=== PATIENT | female | born 1945 | race Caucasian/White ===

== ENCOUNTER 2024-02-03 13:07 | Emergency (ER) | payer OTHER, BC ==
[2024-02-03] MEDS ORDERED: DOXYCYCLINE 100 MG CAP PO ONE (14:12)
[2024-02-03] MEDS ORDERED: CEPHALEXIN 250 MG CAP ONE (14:12)
[2024-02-03] MEDS ORDERED: FUROSEMIDE 20 MG/ 2ML VIAL ONE (14:13)
--- NOTE | 2024-02-03 14:58 | RAD REPORT ---
EXAMINATION: ONE VIEW CHEST XR CLINICAL INDICATION: Female, 78 years old.,SWELLING TECHNIQUE: Frontal chest projection is submitted. Examination is limited by patient positioning and t echnique. COMPARISON: No prior exam. FINDINGS: The lungs are well inflated and clear. No pneumothorax or sizable effusion. The heart is normal in s ize. Sequelae of median sternotomy. IMPRESSION: No acute intrathoracic abnormalities.
[2024-02-03 15:29] LABS: Absolute Eosinophils 0.2 K/uL (0-0.5); Absolute Lymphocytes (CBC) 1.3 K/uL (0.7-4.9); Absolute Monocytes 0.2 K/uL (0.1-1.3); Absolute Neutrophil 4.3 K/uL (1.8-8.0); Basophils % 0.8 % (0-1.3); Hemoglobin 10.3 g/dL (12.0-15.0); Lymphocytes % 21.4 % (15.3-44.8); MCH 35.8 pg (27.0-35.0); MCHC 34.2 g/dL (32.0-36.0); MCV 104.7 fL (80-100); MPV 7.5 fL (7.6-11.3); Monocytes % 3.6 % (3.3-12.3); Neutrophils % 70.2 % (41.7-73.7); Nucleated Red Blood Cells % 0.1 % (0-0); Platelets 149 thou/uL (152-406); RBC Red Blood Cell Count 2.87 M/uL (3.86-4.86); Red Cell Distribution Width 14.3 % (12.1-15.2)
[2024-02-03 15:48] LABS: Magnesium 1.9 mg/dL (1.6-2.4)
[2024-02-03 16:07] LABS: Albumin 2.7 g/dL (3.4-5.0); Albumin/Globulin Ratio 0.8 (1.1-1.8); Anion Gap 7.7 mEq/L (5.0-15.0); Bilirubin Total 0.6 mg/dL (0.2-1.0); Globulin 3.2 g/dL (2.3-3.5); Potassium 3.7 mEq/L (3.5-5.1); Protein, Total 5.9 g/dL (6.4-8.2)
--- NOTE | 2024-02-03 16:19 | EDPHYS ---
Physician Documentation [facility] Name: Darleen Lan Age: 78 yrs Sex: Female : 1945 Arrival Date: 02/03/2024 Time: 13:07 Bed 2 Private MD: ED Physician Jam Capone HPI: 02/02 14:30 This 78 yrs old Female presents to ER via Ambulatory with complaints of Ankle Swelling, kb Skin Sore(s). Historical: - Allergies: 13:44 No Known Allergies; aa5 - Home Meds: 13:47 pregabalin 50 mg Oral capsule once [Active]; atorvastatin 20 mg oral tablet once aa5 [Active]; famotidine 40 mg Oral tablet once [Active]; nystatin 100,000 unit/mL Oral suspension 1 mL [Active]; amlodipine 5 mg tablet once [Active]; prednisone 20 mg Oral tablet once [Active]; Trulicity 3 mg/0.5 mL subcutaneous Pen Injector 3 mg every week [Active]; methotrexate sodium 2.5 mg Oral tablet 4 tabs every week [Active]; clopidogrel 75 mg oral tablet once [Active]; Lantus U-100 Insulin 100 unit/mL Sub-Q solution 15 units every evening [Active]; insulin aspart U-100 subcutaneous 2 units per sliding scale [Active]; metoprolol succinate 100 mg oral Tablet, Extended Release 24 hr daily [Active]; ferrous sulfate 325 mg (65 mg iron) oral tablet 3 times a week [Active]; hydralazine 50 mg Oral tablet at bedtime [Active]; 13:53 nitroglycerin 0.4 mg SL Tablet, Sublingual every 5 minutes [Active]; pramipexole 1 mg aa5 oral tablet every day at bedtime [Active]; niacinamide 500 mg oral tablet 2 times per day [Active]; mirtazapine 15 mg Oral tablet every day at bedtime [Active]; tacrolimus 1 mg oral capsule [Active]; hydroxyzine HCl 10 mg Oral tablet take 1-2 tabs at night as needed for itching [Active]; apixaban 5 mg oral tablet 2 times per day [Active]; Euthyrox 50 mcg oral tablet daily [Active]; doxycycline hyclate 100 mg Oral capsule daily [Active]; triamcinolone acetonide Topical 2 times per day [Active]; Zofran Oral 4 mg every 8 hours [Active]; mirtazapine 15 mg Oral tablet every day at bedtime [Active]; Bumex and Lasix (not taking due to kidney function) [Active]; - PMHx: 13:44 CHF; Kidney failure stage 3; Diabetes mellitus; thyroid problem; Mucous membrane aa5 pemphigoid; Hemolytic Anemia; - PSHx: 13:44 Open Heart SX; aa5 - Immunization history:: Adult Immunizations unknown. - Infectious Disease History:: Denies. - Social history:: Smoking status: Patient denies any tobacco usage or history of. ROS: 14:22 Constitutional: As per HPI kb Exam: 14:22 Constitutional: This is a well developed, well nourished patient who is awake, alert, kb and in no acute distress. Head/Face: Normocephalic, atraumatic. ENT: Moist Mucous membranes Cardiovascular: Regular rate Respiratory: Respirations even and unlabored. No increased work of breathing. Talking in full sentences Abdomen/GI: Soft, non-tender. No distention MS/ Extremity: Pulses equal, no cyanosis. Neurovascular intact. Full, normal range of motion. Neuro: Awake and alert, GCS 15, oriented to person, place, time, and situation. Moves all extremities. Normal gait. 14:22 Cardiovascular: Edema: 2+ edema to bilateral lower extremities, 14:22 ECG was reviewed by the Attending Physician. 14:22 Skin: cellulitis, that is mild, on the left calf, injury, abrasion(s), small abrasion noted, of the left calf, Vital Signs: 13:25 BP 174 / 75; Pulse 80; Resp 19; Temp 97.3; Pulse Ox 100% on R/A; MAP 102 mmHg; tm6 13:58 Weight 73.94 kg (R); Height 5 ft. 3 in. (R); aa5 14:00 BP 145 / 78; Pulse 74; Resp 16 S; Pulse Ox 98% on R/A; aa5 14:49 BP 111 / 53; Pulse 72; Resp 18 S; Pulse Ox 98% on R/A; aa5 16:11 BP 141 / 66; Pulse 76; Resp 13; Pulse Ox 100% ; bp 13:58 Body Mass Index 28.87 (73.94 kg, 160.02 cm) aa5 MDM: 13:15 Medical Screening Exam initiated kb 14:23 Differential diagnosis: cellulitis, CHF, ARF, DVT. Data reviewed: vital signs, nurses kb notes. Historians other than the Patient: Daughter/Son: daughter. External Records Reviewed: Outpatient labs: Reviewed previous labs on pt's [place] . 16:17 Counseling: I had a detailed discussion with the patient and/or guardian regarding the kb historical points, exam findings, and any diagnostic results supporting the discharge/admit diagnosis, lab results, radiology results, the need for outpatient follow up, a family practitioner, to return to the emergency department if symptoms worsen or persist or if there are any questions or concerns that arise at home. 02/02 13:52 Order name: CBC with Diff; Complete Time: 15:49 kb 02/02 13:52 Order name: Magnesium; Complete Time: 15:49 kb 02/02 13:52 Order name: NT PRO-BNP; Complete Time: 15:49 kb 02/02 13:52 Order name: Troponin HS; Complete Time: 15:49 kb 02/02 15:49 Order name: CMP; Complete Time: 16:07 kb 02/02 13:52 Order name: XRAY Chest (1 view); Complete Time: 15:02 kb 02/02 13:52 Order name: EKG; Complete Time: 13:52 kb 02/02 13:52 Order name: Cardiac monitoring; Complete Time: 14:00 kb 02/02 13:52 Order name: EKG - Nurse/Tech; Complete Time: 14:12 kb 02/02 13:52 Order name: IV Saline Lock; Complete Time: 14:13 kb 02/02 13:52 Order name: Labs collected and sent; Complete Time: 14:13 kb 02/02 13:52 Order name: O2 Per Protocol; Complete Time: 14:00 kb 02/02 13:52 Order name: O2 Sat Monitoring; Complete Time: 14:00 kb EC:22 Rate is 73 beats/min. Rhythm is regular. QRS [place] is Normal. AL interval is normal at kb 152 msec. QRS interval is normal at 108 msec. QT interval is normal at 418 msec. Administered Medications: 14:17 Drug: Cephalexin PO 500 mg PO once Route: PO; bp 14:50 Follow up: Response: No adverse reaction aa5 14:19 Drug: Furosemide IVP 20 mg IVP once; give over 2 minutes Route: IVP; Site: right bp forearm; 14:50 Follow up: Response: No adverse reaction aa5 14:19 Drug: Doxycycline PO 100 mg PO once Route: PO; bp 14:50 Follow up: Response: No adverse reaction aa5 Disposition Summary: 02/03/24 16:18 Discharge Ordered Notes: Location: Home kb Condition: Stable kb Diagnosis - Cellulitis of left lower limb kb - Abrasion of lower leg kb Followup: kb - With: Emergency Department - When: As needed - Reason: Worsening of condition Followup: kb - With: Private Physician - When: 2 - 3 days - Reason: Recheck today's complaints, Continuance of care, Re-evaluation by your physician Discharge Instructions: - Discharge Summary Sheet kb - Cellulitis, Adult, [id number] kb Forms: - Medication Reconciliation Form kb - Antibiotic Education kb - Prescription Opioid Use kb - Patient Portal Instructions kb - Leadership Thank You Letter kb Prescriptions: - Cephalexin 500 mg Oral Capsule - take 1 capsule ORAL route every 8 hours for 10 days; 30 capsule; Refills: 0, kb Product Selection Permitted - Doxycycline Hyclate 100 mg Oral Tablet - take 1 tablet ORAL route every 12 hours; 20 tablet; Refills: 0, Product kb Selection Permitted Addendum: 02/04/2024 18:03 I was immediately available for consultation during this patient's visit. I did not e c2 personally see the patient or discuss the patient with the DOMINIK. . Signatures: Dispatcher [employer] EDMS Gissell Ross, GROUNDSMAN-C GROUNDSMAN-Keri Gill, RN RN aa5 Denny Wilkerson RN RN bp Jam Capone MD MD ec2 Carlos Manuel Isabel, RN RN tm6 Corrections: (The following items were deleted from the chart) 02/02 13:52 13:52 CBC+H.LAB.BRZ ordered. EDMS EDMS 13:52 13:52 MAGNESIUM+C.LAB.BRZ ordered. EDMS EDMS 13:52 13:52 PROBNP+C.LAB.BRZ ordered. EDMS EDMS 13:52 13:52 Troponin High Sensitivity+C.LAB.BRZ ordered. EDMS EDMS
--- NOTE | 2024-02-03 16:19 | ER ---
Nurse's Notes [facility] Name: Darleen Lan Age: 78 yrs Sex: Female : 1945 Arrival Date: 02/03/2024 Time: 13:07 Bed 2 Private MD: Diagnosis: Cellulitis of left lower limb;Abrasion of lower leg Presentation: 02/02 13:25 Chief complaint: Patient states: bilateral ankle swelling and sores x1 month. tm6 Coronavirus screen: Client denies travel out of the [place] in the last 14 days. Ebola Screen: Patient negative for fever greater than or equal to 101.5 degrees Fahrenheit, and additional compatible Ebola Virus Disease symptoms Patient denies exposure to infectious person. Patient denies travel to an Ebola-affected area in the 21 days before illness onset. No symptoms or risks identified at this time. Initial Sepsis Screen: Does the patient meet any 2 criteria? No. Patient's initial sepsis screen is negative. Does the patient have a suspected source of infection? No. Patient's initial sepsis screen is negative. Risk Assessment: Do you want to hurt yourself or someone else? Patient reports no desire to harm self or others. Onset of symptoms was January 04, 2024. 13:25 Method Of Arrival: Ambulatory tm6 13:25 Acuity: CARSON 3 tm6 Triage Assessment: 13:25 General: Appears in no apparent distress. Behavior is calm, cooperative. Pain:. EENT: tm6 No signs and/or symptoms were reported regarding the EENT system. Neuro: Level of Consciousness is awake, alert, obeys commands, Oriented to person, place, time, situation. Cardiovascular: Patient's skin is warm and dry. Respiratory: Airway is patent Respiratory effort is even, unlabored, Respiratory pattern is regular, symmetrical. GI: No signs and/or symptoms were reported involving the gastrointestinal system. Abdomen is flat, non-distended. : No signs and/or symptoms were reported regarding the genitourinary system. Derm: sores pauline ankles. Musculoskeletal: Swelling present in anterior aspect of right ankle and anterior aspect of left ankle. Historical: - Allergies: 13:44 No Known Allergies; aa5 - Home Meds: 13:47 pregabalin 50 mg Oral capsule once [Active]; atorvastatin 20 mg oral tablet once aa5 [Active]; famotidine 40 mg Oral tablet once [Active]; nystatin 100,000 unit/mL Oral suspension 1 mL [Active]; amlodipine 5 mg tablet once [Active]; prednisone 20 mg Oral tablet once [Active]; Trulicity 3 mg/0.5 mL subcutaneous Pen Injector 3 mg every week [Active]; methotrexate sodium 2.5 mg Oral tablet 4 tabs every week [Active]; clopidogrel 75 mg oral tablet once [Active]; Lantus U-100 Insulin 100 unit/mL Sub-Q solution 15 units every evening [Active]; insulin aspart U-100 subcutaneous 2 units per sliding scale [Active]; metoprolol succinate 100 mg oral Tablet, Extended Release 24 hr daily [Active]; ferrous sulfate 325 mg (65 mg iron) oral tablet 3 times a week [Active]; hydralazine 50 mg Oral tablet at bedtime [Active]; 13:53 nitroglycerin 0.4 mg SL Tablet, Sublingual every 5 minutes [Active]; pramipexole 1 mg aa5 oral tablet every day at bedtime [Active]; niacinamide 500 mg oral tablet 2 times per day [Active]; mirtazapine 15 mg Oral tablet every day at bedtime [Active]; tacrolimus 1 mg oral capsule [Active]; hydroxyzine HCl 10 mg Oral tablet take 1-2 tabs at night as needed for itching [Active]; apixaban 5 mg oral tablet 2 times per day [Active]; Euthyrox 50 mcg oral tablet daily [Active]; doxycycline hyclate 100 mg Oral capsule daily [Active]; triamcinolone acetonide Topical 2 times per day [Active]; Zofran Oral 4 mg every 8 hours [Active]; mirtazapine 15 mg Oral tablet every day at bedtime [Active]; Bumex and Lasix (not taking due to kidney function) [Active]; - PMHx: 13:44 CHF; Kidney failure stage 3; Diabetes mellitus; thyroid problem; Mucous membrane aa5 pemphigoid; Hemolytic Anemia; - PSHx: 13:44 Open Heart SX; aa5 - Immunization history:: Adult Immunizations unknown. - Infectious Disease History:: Denies. - Social history:: Smoking status: Patient denies any tobacco usage or history of. Screenin:30 [facility] Fall Risk Assessment (Adult) History of falling in the last 3 months, aa5 including since admission No falls in past 3 months (0 pts) Confusion or Disorientation No (0 pts) Intoxicated or Sedated No (0 pts) Impaired Gait No (0 pts) Mobility Assist Device Used No (0 pt) Altered Elimination No (0 pt) Score/Fall Risk Level 0 - 2 = Low Risk Oriented to surroundings, Maintained a safe environment, Educated pt \T\ family on fall prevention, incl call for assistance when getting out of bed. Abuse screen: Denies threats or abuse. Nutritional screening: No deficits noted. Tuberculosis screening: No symptoms or risk factors identified. Assessment: 13:30 General: Appears comfortable, Behavior is calm, cooperative. Pain: Complains of pain in aa5 left leg Quality of pain is described as aching, pressure, tender, Is continuous. Neuro: Level of Consciousness is awake, alert, obeys commands, Oriented to person, place, time, situation. Cardiovascular: Heart tones S1 S2 present Edema 2+ pitting edema to pauline lower extremities Rhythm is regular. Respiratory: Airway is patent Respiratory effort is even, unlabored, Respiratory pattern is regular, symmetrical. GI: No signs and/or symptoms were reported involving the gastrointestinal system. : No signs and/or symptoms were reported regarding the genitourinary system. EENT: No signs and/or symptoms were reported regarding the EENT system. Derm: Skin is pink, warm \T\ dry. Laceration noted to back of left leg, measuring approximately 0.5 in long, no active bleeding noted, mild redness noted to left lower leg that is hot to touch. Musculoskeletal: Range of motion: intact in all extremities. 14:49 Reassessment: Patient is alert, oriented x 3, equal unlabored respirations, skin aa5 warm/dry/pink. 16:11 Reassessment: Patient appears in no apparent distress at this time. Patient is alert, bp oriented x 3, equal unlabored respirations, skin warm/dry/pink. 16:35 Reassessment: Patient is alert, oriented x 3, equal unlabored respirations, skin aa5 warm/dry/pink. Vital Signs: 13:25 BP 174 / 75; Pulse 80; Resp 19; Temp 97.3; Pulse Ox 100% on R/A; MAP 102 mmHg; tm6 13:58 Weight 73.94 kg (R); Height 5 ft. 3 in. (R); aa5 14:00 BP 145 / 78; Pulse 74; Resp 16 S; Pulse Ox 98% on R/A; aa5 14:49 BP 111 / 53; Pulse 72; Resp 18 S; Pulse Ox 98% on R/A; aa5 16:11 BP 141 / 66; Pulse 76; Resp 13; Pulse Ox 100% ; bp 13:58 Body Mass Index 28.87 (73.94 kg, 160.02 cm) aa5 ED Course: 13:09 Patient arrived in ED. mr 13:14 Gissell Ross, [facility] kb 13:14 Jam Capone MD is Attending Physician. kb 13:25 Arm band placed on right wrist. tm6 13:26 Triage completed. tm6 13:28 Keri Warren, RN is Primary Nurse. aa5 13:30 Patient has correct armband on for positive identification. Bed in low position. Call aa5 light in reach. Side rails up X2. Pulse ox on. NIBP on. 14:07 XRAY Chest (1 view) In Process Unspecified. EDMS 14:08 Inserted saline lock: 22 gauge in right forearm, using aseptic technique. Blood bp collected. Flushed with 10 mL NS. 14:09 EKG done, by ED staff, reviewed by Gissell SOLORZANO. aa5 14:42 No provider procedures requiring assistance completed. aa5 16:35 IV discontinued, intact, bleeding controlled, No redness/swelling at site. Pressure aa5 dressing applied. Administered Medications: 14:17 Drug: Cephalexin PO 500 mg PO once Route: PO; bp 14:50 Follow up: Response: No adverse reaction aa5 14:19 Drug: Furosemide IVP 20 mg IVP once; give over 2 minutes Route: IVP; Site: right bp forearm; 14:50 Follow up: Response: No adverse reaction aa5 14:19 Drug: Doxycycline PO 100 mg PO once Route: PO; bp 14:50 Follow up: Response: No adverse reaction aa5 Medication: 14:39 VIS not applicable for this client. aa5 Outcome: 16:18 Discharge ordered by . kb 16:35 Discharged to home via wheelchair, with family, aa5 16:35 Condition: stable 16:35 Discharge instructions given to patient, Instructed on discharge instructions, follow up and referral plans. medication usage, Demonstrated understanding of instructions, follow-up care, medications, Prescriptions given X 2, 16:38 Patient left the ED. aa5 Signatures: Dispatcher [employer] EDMS Gissell Ross, KALYN-Selam CAIP-Elvira Hammer, Reg Reg mr Warren, Keri, RN RN aa5 Denny Wilkerson, RN RN bp Carlos Manuel Isabel RN RN tm6
[2024-02-03 18:30] VITALS: TEMP 97.3
[2024-02-03 18:33] VITALS: BP 141/66; O2SAT 100
--- NOTE | 2024-02-06 12:03 | EKG ---
Test Date: 2024-02-03 Test Time: 14:09:50 Inner Tube Cutter: VERN MEASUREMENT RESULTS: Intervals: Rate: 73 IN: 152 QRSD: 108 QT: 380 QTc: 418 [place]: P: 62 IN: 152 QRS: 3 T: 2 INTERPRETIVE STATEMENTS: Normal sinus rhythm Low voltage QRS Borderline ECG No previous ECG available for comparison Electronically Signed On 02-06-24 11:55:01 CDT by Ric Montez
== END 2024-02-03 16:38 | disposition home or self-care (01) ==
LOC: ER 13:07
DX: L03.116 Cellulitis of left lower limb (principal); E11.22 Type 2 diabetes mellitus with diabetic chronic kidney disease; N18.2 Chronic kidney disease, stage 2 (mild); Z79.4 Long term (current) use of insulin
CPT/HCPCS: 93005; 85025; 36415; 83735; 84484; 80053; 83880; 71045; J1940; 96374; 99285